=== PATIENT | female | born 1975 | race Caucasian/White ===

== ENCOUNTER 2021-01-21 15:41 | Observation (INO) ==
[2021-01-21] MEDS ORDERED: ONDANSETRON INJ 2 MG/ML 2 ML VIAL IV STA (16:13)
[2021-01-21] MEDS: HYDROmorphone INJ 0.5 MG/0.5 ML SYR IV PRN ×3 (16:25→19:14)
--- NOTE | 2021-01-21 16:25 | Emergency Department Note ---
Impression & Plan Abdominal pain, RUQ, Acute cholecystitis ED Provider Note INFORMANT: Patient ED PROVIDER(S): Rahat Calloway MD CHIEF COMPLAINT: Right upper quadrant abdominal pain PLAN: Disposition: Admitted Condition: Good Outpatient prescription management: none Referral: None MEDICAL DECISION MAKING: Patient was complaining of abdominal pain. This was right upper quadrant. Is concerning as she just had a colonoscopy performed. She was treated with IV Dilaudid and Zofran. She had blood work and imaging ordered. Her CBC, chemistry panel, LFTs, and lipase were unremarkable. Urinalysis was somewhat questionable although the patient does not have any urinary symptoms. CT imaging was performed. Radiology was concerned about possible developing cholecystitis recommend ultrasound imaging. Ultrasound imaging was performed and showed findings concerning for acute cholecystitis. Large gallstones noted. The patient required multiple doses of IV Dilaudid and was given IV Toradol as well. Consultation was made with general surgery, Dr. Collins. The patient will be admitted for further management. She was given IV Mefoxin. Triage Nursing notes reviewed and agree them. Vital Signs: reviewed and remarkable for no significant abnormalities Differential diagnosis: Biliary pathology, complication of colonoscopy, appendicitis, ovarian cyst, ovarian torsion, ectopic , TOA, PID, infections, diverticulitis, UTI, obstruction, mesenteric ischemia, aortic pathology, inflammatory bowel disease, renal colic, PUD, pancreatitis, hernia, volvulus, constipation, as well as other pathologies. Diagnostics interpreted by me: ECG: none Cardiac Monitoring: Cardiac monitoring ordered by me: The patient was placed on continuous cardiac monitoring and observed. It revealed a normal sinus rhythm at 66 beats per minute without ectopy or evidence of dysrhythmia. Imaging studies: CT imaging of the abdomen pelvis was concerning for developing cholecystitis. Radiology recommended ultrasound imaging Ultrasound imaging shows significant cholelithiasis and concerns for cholecystitis. HPI: The patient is a 45 year old female who presents to the Emergency Room with complaints of abdominal pain. This started this morning at 8 AM and is in the right upper quadrant. The patient also notes the following associated symptoms, nausea. The patient has tried Tylenol and Motrin for relieving factors. Current pain is rated as 7/10. Patient had a colonoscopy done yesterday. She notes no obvious problems from that. She woke up today with the pain. She has not notified GI. Pt denies LOC, headache, fevers, chills, diaphoresis, visual changes, neck pain, chest pain, breathing difficulties, , vomiting, back pain, melena, hematochezia, urinary symptoms, numbness, weakness, lymphadenopathy, r yeni, or other complaints. ROS: See above HPI for pertinent positives & negatives. A total of 10 systems reviewed and were otherwise negative. PAST MEDICAL HISTORY:See Below , GERD, hypothyroidism PAST SURGICAL HISTORY:See Below, FAMILY HISTORY:See Below SOCIAL HISTORY:See Below, single HOME MEDICATIONS:See Below ALLERGIES:See Below VITALS:See Below PHYSICAL EXAMINATION: GENERAL: Awake, alert, uncomfortable-appearing, in no distress HENT: Normocephalic, atraumatic. Oropharynx unremarkable. EYES: Normal conjunctiva. Sclera non-icteric. NECK: Inspection normal. Non-tender. Supple. No nuchal rigidity. FROM. No masses. RESPIRATORY: Clear to auscultation. No wheezes. No rales. Normal respiratory effort. CARDIAC: Normal rate. Normal rhythm. No murmurs. No rubs. Extremities warm and well perfused. Pulses equal. No JVD. GI: Soft, non-distended. Right upper quadrant tenderness to palpation. No rebound or guarding. No masses. RECTAL: Deferred. MUSCULOSKELETAL: Atraumatic. Chest examination reveals no tenderness. The back is symmetrical on inspection without obvious abnormality. There is no CVA tenderness to palpation. No joint edema. LOWER EXTREMITIES: Calves are equal size bilaterally and non-tender. No edema. No discoloration. NEURO: Normal sensorium. No sensory or motor deficits noted. SKIN: No rash or jaundice noted.n Rahat Calloway MD Past Med/Surg History Medical History (Updated 01/21/21 @ 20:01 by Rahat Calloway MD) ADD (attention deficit disorder) Allergy-induced asthma LAST USED INHALER 3 WEEKS AGO Anxiety and depression Bipolar disorder "MILD" Brain concussion X 5 ([facility]>LAST EPISODE 5 YEARS AGO) Degenerative disc disease EDS (Jaya-Danlos syndrome) Endometriosis (~01/17/06) GERD (gastroesophageal reflux disease) H/O benign neoplasm of thyroid gland Hypothyroidism Lumbar radiculopathy Migraine Temporomandibular joint disorder WITH LOCKING Surgical History (Updated 01/17/21 @ 15:47 by Viola Oreilly RN) H/O thyroidectomy LARGE MASS REMOVED (BENIGN) History of esophagogastroduodenoscopy (EGD) History of tooth extraction S/P laparoscopic procedure endometrioma fulguration AND OVARIAN CYSTECTOMY [place] teeth removed Family History (Updated 01/17/21 @ 15:47 by Viola Oreilly RN) Aunt Breast cancer maternal Mother Multiple allergies Hyperlipidemia Mental disorder Esophageal reflux Endometriosis Hypertension Thyroid disorder Unknown Skin cancer Ovarian cancer Breast cancer Uterine cancer Father Multiple allergies Skin cancer Grandmother (Paternal) Lung cancer Uncle Myocardial infarction Other Family history of blood clots No family history of adverse response to anesthesia Denies family history of Prostate cancer Diabetes Colorectal cancer Social History Smoking Status: Never smoker Second Hand Exposure: Yes ( A CHILD); Hx Alcohol Use: Yes Hx Substance Use: No Preferred Language: Guinean Communication Ability: Effective Photographic Spotter Required: No Beliefs That Will Affect Care: None marital status: Single Current Living Situation: Significant Other current occupational status: unemployed How many Children do You have: 0 Feels Safe at Home: Yes Safety Concerns: Feels Safe At This Time Childhood Exposure to Second-Hand Smoke: Yes caffeine: Yes Dental Care, Regularly: No Physical Activity Frequency: 3-4 Times per Week Seatbelt Use: always Sunscreen Use: Yes Assistive Devices: Glasses Allergies Allergies Allergy/AdvReac Type Severity Reaction Status Date / Time No Known Allergies Allergy Unknown Verified 01/21/21 20:39 Home Meds Home Medications Medication Instructions Recorded Confirmed cetirizine 5 mg-pseudoephedrine ER 1 tab PO DAILY PRN tab 11/15/20 01/21/21 120 mg tablet,extended release,12hr (Zyrtec-D) cholecalciferol (vitamin D3) 50 50 mcg PO HS 11/15/20 01/21/21 mcg (2,000 unit) capsule Curamin 3 cap PO QAM 01/17/21 01/21/21 omega-3 fatty acids 1,000 mg PO QPM 01/17/21 01/21/21 acetaminophen 500 mg tablet 1,500 mg PO Q6H PRN 01/21/21 01/21/21 (Tylenol Extra Strength) conjugated estrogens 0.625 mg/gram 0.625 mg VAGINAL PM 01/21/21 01/21/21 vaginal cream (Premarin) ibuprofen 200 mg capsule (Motrin 200 mg PO Q6H PRN 01/21/21 01/21/21 IB) levothyroxine 100 mcg tablet 100 mcg PO DAILYBB 01/21/21 01/21/21 omeprazole 40 mg capsule,delayed 40 mg PO QAM 01/21/21 01/21/21 release Previous Rx's Medication Instructions Recorded albuterol sulfate 90 mcg/actuation 1 inh INHALATION QID PRN #8.5 g 11/11/20 aerosol inhaler calcipotriene 0.005 % topical cream 1 applic TOPICAL BID #120 g 12/13/20 clobetasol 0.05 % scalp solution 1 applic TOPICAL DAILY #50 ml 12/13/20 clobetasol 0.05 % topical cream 1 applic TOPICAL BID 14 Days #60 g 12/13/20 Results & Data (ED) Vital Signs Vital Signs - 24 hr 01/21/21 15:46 01/21/21 16:30 01/21/21 17:00 Temperature 36.9 C Temperature Source Temporal Artery Scan Pulse Rate 66 Pulse Rate [Apical] 56 L Pulse Rate from SpO2 Sensor Respiratory Rate 18 18 Respiratory Effort / Characteristics Non-Labored Spontaneous Non-Labored Respiratory Depth Normal Normal Respiratory Pattern Regular Blood Pressure 167/86 H Blood Pressure [Right Arm] 107/92 Blood Pressure Mean 113 Blood Pressure Mean [Right Arm] 97 Blood Pressure Position Sitting Pulse Oximetry 100 97 Oxygen Delivery Method Room Air Room Air Room Air Sepsis Recent Fever Within 48 Hours No Sepsis New/Unexplained Change in Mental Status N/A Sepsis Action Taken by Nursing No Action Required 01/21/21 18:00 01/21/21 19:00 01/21/21 20:00 Temperature Temperature Source Pulse Rate 60 76 Pulse Rate [Apical] 60 Pulse Rate from SpO2 Sensor 61 78 Respiratory Rate 18 20 16 Respiratory Effort / Characteristics Non-Labored Respiratory Depth Normal Respiratory Pattern Blood Pressure 156/113 H 123/77 Blood Pressure [Right Arm] 156/92 H Blood Pressure Mean 127 92 Blood Pressure Mean [Right Arm] 113 Blood Pressure Position Pulse Oximetry 100 100 96 Oxygen Delivery Method Room Air Sepsis Recent Fever Within 48 Hours Sepsis New/Unexplained Change in Mental Status Sepsis Action Taken by Nursing Laboratory Data Result diagrams: 01/21/21 16:21 01/21/21 16:21 Lab Results 01/21/21 01/21/21 01/21/21 Range/Units 16:21 16:21 16:21 WBC 9.79 (4.8-10.8) K/uL RBC 4.86 (4.2-5.4) M/uL Hgb 14.7 (12.0-16.0) g/dL Hct 42.2 (37-47) % MCV 86.8 (80-100) fL MCH 30.2 (25-34) pg MCHC 34.8 (32-36) g/dL RDW Std Deviation 40.7 (36.4-46.3) fL RDW Coeff of Shaan 12.7 (11.5-14.5) % Plt Count 376 (130-400) K/uL MPV 9.9 (7.4-10.4) fL Immature Gran % (Auto) 0.1 % Neut % (Auto) 87.1 % Lymph % (Auto) 9.9 % [place] % (Auto) 2.6 % Eos % (Auto) 0.2 % Baso % (Auto) 0.1 % Neut # (Auto) 8.53 H (1.4-6.5) K/uL Lymph # (Auto) 0.97 L (1.2-3.4) K/uL [place] # (Auto) 0.25 (0.11-0.59) K/uL Eos # (Auto) 0.02 (0-0.5) K/uL Baso # (Auto) 0.01 (0-0.2) K/uL Immature Gran # (Auto) 0.01 (0.00-0.02) K/uL Sodium 136 (136-145) mmol/L Potassium 3.7 (3.5-5.1) mmol/L Chloride 106 (98-107) mmol/L Carbon Dioxide 22 (21-32) mmol/L Anion Gap 8.0 (3-11) BUN 7 (7-18) mg/dl Creatinine 0.75 (0.6-1.2) mg/dl Est Cr Clr Drug Dosing 116.7 ml/min Est GFR ( Amer) 111.6 ml/min Est GFR (Non-Af Amer) 96.3 ml/min BUN/Creatinine Ratio 9.3 L (10-20) Glucose 118 H (70-99) mg/dl Calcium 9.2 (8.5-10.1) mg/dl Total Bilirubin 0.3 (0.2-1) mg/dl AST 18 (15-37) U/L ALT 43 (12-78) U/L Alkaline Phosphatase 86 (45-117) U/L Total Protein 7.8 (6.4-8.2) gm/dl Albumin 3.9 (3.4-5.0) gm/dl Globulin 3.9 (2.5-4.0) gm/dl Albumin/Globulin Ratio 1.0 (0.9-2) Lipase 106 (73-393) U/L HCG, Qual Negative (Negative) Urine Color Urine Appearance (Clear) Urine pH (4.5-7.5) Ur Specific [place] (1.000-1.030) Urine Protein (Negative) Urine Glucose (UA) (Negative) Urine Ketones (Negative) Urine Blood (Negative) Urine Nitrite (Negative) Urine Bilirubin (Negative) Urine Urobilinogen (Negative) Ur Leukocyte Esterase (Negative) Urine WBC (Auto) (0-5) /hpf Urine RBC (Auto) (0-4) /hpf U Hyaline Cast (Auto) (0-5) /lpf U Epithel Cells (Auto) (0-5) /lpf Urine Bacteria (Auto) (Negative) Amorphous Sediment (None Prsent) Urine Yeast COVID-19 Eval Order SARS-CoV-2 (PCR) (Negative) 01/21/21 01/21/21 01/21/21 Range/Units 16:25 20:20 20:20 WBC (4.8-10.8) K/uL RBC (4.2-5.4) M/uL Hgb (12.0-16.0) g/dL Hct (37-47) % MCV (80-100) fL MCH (25-34) pg MCHC (32-36) g/dL RDW Std Deviation (36.4-46.3) fL RDW Coeff of Shaan (11.5-14.5) % Plt Count (130-400) K/uL MPV (7.4-10.4) fL Immature Gran % (Auto) % Neut % (Auto) % Lymph % (Auto) % [place] % (Auto) % Eos % (Auto) % Baso % (Auto) % Neut # (Auto) (1.4-6.5) K/uL Lymph # (Auto) (1.2-3.4) K/uL [place] # (Auto) (0.11-0.59) K/uL Eos # (Auto) (0-0.5) K/uL Baso # (Auto) (0-0.2) K/uL Immature Gran # (Auto) (0.00-0.02) K/uL Sodium (136-145) mmol/L Potassium (3.5-5.1) mmol/L Chloride (98-107) mmol/L Carbon Dioxide (21-32) mmol/L Anion Gap (3-11) BUN (7-18) mg/dl Creatinine (0.6-1.2) mg/dl Est Cr Clr Drug Dosing ml/min Est GFR ( Amer) ml/min Est GFR (Non-Af Amer) ml/min BUN/Creatinine Ratio (10-20) Glucose (70-99) mg/dl Calcium (8.5-10.1) mg/dl Total Bilirubin (0.2-1) mg/dl AST (15-37) U/L ALT (12-78) U/L Alkaline Phosphatase (45-117) U/L Total Protein (6.4-8.2) gm/dl Albumin (3.4-5.0) gm/dl Globulin (2.5-4.0) gm/dl Albumin/Globulin Ratio (0.9-2) Lipase (73-393) U/L HCG, Qual (Negative) Urine Color Yellow Urine Appearance Cloudy A (Clear) Urine pH 5.0 (4.5-7.5) Ur Specific [place] 1.022 (1.000-1.030) Urine Protein Negative (Negative) Urine Glucose (UA) Negative (Negative) Urine Ketones Negative (Negative) Urine Blood Negative (Negative) Urine Nitrite Negative (Negative) Urine Bilirubin Negative (Negative) Urine Urobilinogen Negative (Negative) Ur Leukocyte Esterase Negative (Negative) Urine WBC (Auto) 10-30 H (0-5) /hpf Urine RBC (Auto) 0-4 (0-4) /hpf U Hyaline Cast (Auto) 1-5 (0-5) /lpf U Epithel Cells (Auto) >30 H (0-5) /lpf Urine Bacteria (Auto) 1+ H (Negative) Amorphous Sediment Present A (None Prsent) Urine Yeast Not Reportable COVID-19 Eval Order Covid19 at [facility] SARS-CoV-2 (PCR) NEGATIVE (Negative) Administered Medications Lactated Ringer's (Lr) 1,000 mls @ 100 mls/hr IV .Q10H LOVE Stop: 02/20/21 23:02 Last Admin: 01/21/21 23:50 Dose: 100 mls/hr Documented by: [id number] Ampicillin Sodium/Sulbactam Sodium 1,500 mg/ Sodium Chloride 104 mls @ 200 mls/hr IV Q6H LOVE; Protocol Stop: 02/01/21 00:00 Last Admin: 01/22/21 00:51 Dose: 200 mls/hr Documented by: [id number] Morphine Sulfate (Morphine Sulfate 2 Mg/Ml Carp) 2 mg IV Q3H PRN PRN Reason: Pain (1,2,3,4,5) & Pre PT Stop: 02/04/21 23:02 Last Admin: 01/21/21 23:45 Dose: 2 mg Documented by: [id number] Morphine Sulfate (Morphine Sulfate 4 Mg/Ml 1 Ml Carp\\Vial) 4 mg IV Q3H PRN PRN Reason: Pain (6,7,8,9,10) Stop: 02/04/21 23:02 Last Admin: 01/22/21 00:50 Dose: 4 mg Documented by: [id number] Discontinued Medications Hydromorphone HCl (Hydromorphone Inj 0.5 Mg/0.5 Ml Syr) 0.5 mg IV Q15M PRN PRN Reason: Pain Stop: 02/04/21 16:12 Last Admin: 01/21/21 19:14 Dose: 0.5 mg Documented by: [id number] Admin: 01/21/21 17:16 Dose: 0.5 mg Documented by: [id number] Admin: 01/21/21 16:25 Dose: 0.5 mg Documented by: [id number] Cefoxitin Sodium (Mefoxin) 2,000 mg in 60 mls @ 100 mls/hr IV NOW STA Stop: 01/21/21 20:42 Last Infusion: 01/21/21 21:07 Dose: 0 mls/hr Documented by: [id number] Admin: 01/21/21 20:21 Dose: 100 mls/hr Documented by: [id number] Ioversol (Optiray 320 125ml) 95 ml IV ONCE ONE Stop: 01/21/21 17:42 Last Admin: 01/21/21 17:41 Dose: 95 ml Documented by: [id number] Ioversol (Optiray 320 100ml) 95 ml IV ONCE ONE Stop: 01/21/21 17:43 Last Admin: 01/21/21 17:42 Dose: 95 ml Documented by: [id number] Ketorolac Tromethamine (Ketorolac Tromethamine 15 Mg/Ml Vial) 10 mg IV NOW ONE Stop: 01/21/21 18:37 Last Admin: 01/21/21 18:50 Dose: 10 mg Documented by: [id number] Ondansetron HCl (Ondansetron Inj 2 Mg/Ml 2 Ml Vial) 4 mg IV NOW STA Stop: 01/21/21 16:14 Last Admin: 01/21/21 16:25 Dose: 4 mg Documented by: [id number] Imaging Data Radiologist's Impression: Abdomen/Pelvis CT 01/21/21 16:14 CT OF THE ABDOMEN AND PELVIS WITH CONTRAST CLINICAL HISTORY: upper abd pain s/p colonoscopy COMPARISON STUDY: Pelvic ultrasound December 08, 2020. CT of the abdomen and pelvis August 26, 2016. TECHNIQUE: Following IV administration of 95 mL of Optiray, axial images of the abdomen and pelvis were obtained from the lung bases to the proximal femurs. Images were reviewed in the axial, sagittal, and coronal planes. IV contrast was administered without complication. Automated exposure control was utilized for the study. A dose lowering technique was utilized adhering to the principles of ALARA. CT DOSE: 997.19 mGy.cm FINDINGS: Visualized portions of the lung bases are unremarkable. No pneumatosis, free air or portal venous gas is present. The liver, spleen, adrenal glands, kidneys and pancreas are normal. There is no biliary or pancreatic ductal dilatation. There is mild dilatation of the gallbladder. Lucencies within the gallbladder likely reflect gas containing stones. There is trace pericholecystic fluid. There is no evidence for a bowel obstruction. The appendix is normal. Caliber and wall thickness of small and large bowel are normal. Major vasculature is patent. No acute fracture or suspicious lesion is identified within the visualized skeletal structures. IMPRESSION: 1. No pneumoperitoneum. No bowel wall thickening. 2. Mildly distended gallbladder with suspected gallstones. Trace pericholecystic infiltration. Acute cholecystitis cannot be excluded. A right upper quadrant ultrasound is recommended. ACT 112: Negative or not required by law. Electronically signed by: Ariel Mills M.D. 01/21/2021 6:32 PM Gallbladder Ultrasound 01/21/21 18:36 US gallbladder CLINICAL HISTORY: Right upper quadrant abdominal pain. COMPARISON STUDY: CT of the abdomen and pelvis performed earlier today. FINDINGS: No hepatic lesions are identified. There is no biliary ductal dilatation. The common bile duct measures 3 mm in caliber. Pancreas is unremarkable. Note is made of a 2.3 cm gallstone within the gallbladder. There is sludge within the gallbladder. Gallbladder is mildly distended. There is no gallbladder wall thickening. There is trace pericholecystic fluid. Sonographic Sow sign could not be assessed for in this patient. There is no right hydronephrosis. IMPRESSION: 1. Cholelithiasis and sludge within the gallbladder. Trace pericholecystic fluid. Mild gallbladder distention. Acute cholecystitis cannot be excluded. 2. No biliary ductal dilatation. ACT 112: Negative or not required by law. Electronically signed by: Ariel Mills M.D. 01/21/2021 8:03 PM Discharge Plan Visit Data Chief Complaint: Abdominal Pain Stated Complaint: HAD COLONSCOPY YESTERDAY, PAIN & NAUSEA ED Provider: Rahat Calloway Discharge Problem: Abdominal pain, RUQ, Acute cholecystitis Patient Disposition: Admitted As Inpatient Discharge Instructions Interventions: ED Discharge Assessment Last Done: 01/21/21 22:35
[2021-01-21 16:31] LABS: Basophils # (auto) 0.01 K/uL (0-0.2); Basophils % (auto) 0.1 %; Eosinophils # (auto) 0.02 K/uL (0-0.5); Eosinophils % (auto) 0.2 %; Hematocrit (blood only) 42.2 % (37-47); Hemoglobin 14.7 g/dL (12.0-16.0); Immature Granulocytes # (auto) 0.01 K/uL (0.00-0.02); Immature Granulocytes % (auto) 0.1 %; Lymphocytes # (auto) 0.97 K/uL (1.2-3.4); Lymphocytes % (auto) 9.9 %; Mean Corpuscular Hemoglobin 30.2 pg (25-34); Mean Corpuscular Hgb Conc 34.8 g/dL (32-36); Mean Corpuscular Volume 86.8 fL (80-100); Mean Platelet Volume 9.9 fL (7.4-10.4); Monocytes # (auto) 0.25 K/uL (0.11-0.59); Monocytes % (auto) 2.6 %; Neutrophils # (auto) 8.53 K/uL (1.4-6.5); Neutrophils % (auto) 87.1 %; Platelet Count 376 K/uL (130-400); RDW Coefficient of Variation 12.7 % (11.5-14.5); RDW Standard Deviation 40.7 fL (36.4-46.3); Red Blood Count 4.86 M/uL (4.2-5.4); White Blood Count 9.79 K/uL (4.8-10.8)
[2021-01-21 16:47] LABS: Albumin Level 3.9 gm/dl (3.4-5.0); BUN Creatinine Ratio 9.3 (10-20); Calcium 9.2 mg/dl (8.5-10.1); Creatinine Clr Calc Pharmacy 116.7 ml/min; Est GFR (African American) 111.6 ml/min; Est GFR (Non-African American) 96.3 ml/min; Potassium 3.7 mmol/L (3.5-5.1)
[2021-01-21 16:50] LABS: Bilirubin,Total 0.3 mg/dl (0.2-1); Globulin 3.9 gm/dl (2.5-4.0); Total Protein 7.8 gm/dl (6.4-8.2)
[2021-01-21 17:05] LABS: Pregnancy Test, Serum Negative (Negative)
[2021-01-21 17:24] LABS: Appearance Urine Cloudy (Clear); Bacteria Urine Automated 1+ (Negative); Bilirubin Urine Negative (Negative); Blood Urine Negative (Negative); Color Urine Yellow; Epithelial Cell Urine Auto >30 /lpf (0-5); Glucose Urine UA Negative (Negative); Ketones Urine Negative (Negative); Leukocyte Esterase Urine Negative (Negative); Nitrite Urine Negative (Negative); Protein Urine Negative (Negative); Specific Gravity Urine 1.022 (1.000-1.030); Urobilinogen Urine Negative (Negative)
[2021-01-21 17:40] LABS: Amorphous Sediment Urine Present (None Prsent); RBC Urine Automated 0-4 /hpf (0-4)
[2021-01-21] MEDS ORDERED: OPTIRAY 320 125ml IV ONE (17:41)
[2021-01-21] MEDS ORDERED: OPTIRAY 320 100ml IV ONE (17:42)
--- NOTE | 2021-01-21 18:33 | CT Scan Report ---
CT OF THE ABDOMEN AND PELVIS WITH CONTRAST CLINICAL HISTORY: upper abd pain s/p colonoscopy COMPARISON STUDY: Pelvic ultrasound December 08, 2020. CT of the abdomen and pelvis August 26, 2016. TECHNIQUE: Following IV administration of 95 mL of Optiray, axial images of the abdomen and pelvis we re obtained from the lung bases to the proximal femurs. Images were reviewed in the axial, sagittal, and coronal planes. IV contrast was administered without complication. Automated exposure control wa s utilized for the study. A dose lowering technique was utilized adhering to the principles of ALARA . CT DOSE: 997.19 mGy.cm FINDINGS: Visualized portions of the lung bases are unremarkable. No pneumatosis, free air or portal venous gas is present. The liver, spleen, adrenal glands, kidneys and pancreas are normal. There is n o biliary or pancreatic ductal dilatation. There is mild dilatation of the gallbladder. Lucencies wit hin the gallbladder likely reflect gas containing stones. There is trace pericholecystic fluid. There is no evidence for a bowel obstruction. The appendix is normal. Caliber and wall thickness of small and large bowel are normal. Major vasculature is patent. No acute fracture or suspicious lesion is id entified within the visualized skeletal structures. IMPRESSION: 1. No pneumoperitoneum. No bowel wall thickening. 2. Mildly distended gallbladder with suspected gallstones. Trace pericholecystic infiltration. Acute cholecystitis cannot be excluded. A right upper quadrant ultrasound is recommended. ACT 112: Negative or not required by law. Electronically signed by: Ariel Mills M.D. 01/21/2021 6:32 PM
[2021-01-21] MEDS ORDERED: KETOROLAC TROMETHAMINE 15 MG/ML VIAL IV ONE (18:36)
--- NOTE | 2021-01-21 20:04 | Ultrasound Report ---
US gallbladder CLINICAL HISTORY: Right upper quadrant abdominal pain. COMPARISON STUDY: CT of the abdomen and pelvis performed earlier today. FINDINGS: No hepatic lesions are identified. There is no biliary ductal dilatation. The common bile d uct measures 3 mm in caliber. Pancreas is unremarkable. Note is made of a 2.3 cm gallstone within the gallbladder. There is sludge within the gallbladder. Gallbladder is mildly distended. There is no ga llbladder wall thickening. There is trace pericholecystic fluid. Sonographic Sow sign could not be assessed for in this patient. There is no right hydronephrosis. IMPRESSION: 1. Cholelithiasis and sludge within the gallbladder. Trace pericholecystic fluid. Mild gallbladder di stention. Acute cholecystitis cannot be excluded. 2. No biliary ductal dilatation. ACT 112: Negative or not required by law. Electronically signed by: Ariel Mills M.D. 01/21/2021 8:03 PM
[2021-01-21] MEDS ORDERED: cefOXitin 2,000 MG/60 ML BAG IV STA (20:07)
[2021-01-21] MEDS ORDERED: ALBUTEROL HFA 8 GM INHALER INH PRN (23:03)
[2021-01-21] MEDS ORDERED: oxyCODONE/ACETAMINOPHEN 5mg/325mg TAB PO PRN (23:03)
[2021-01-21] MEDS ORDERED: ONDANSETRON INJ 2 MG/ML 2 ML VIAL IV PRN (23:03)
[2021-01-21] MEDS: MoRPHine SULFATE 2 MG/ML CARP IV PRN (23:45)
[2021-01-21] MEDS: LACTATED RINGER'S 1,000 ML IV SCH (23:50)
[2021-01-22] MEDS: MoRPHine SULFATE 4 MG/ML 1 ML CARP\\VIAL IV PRN ×3 (00:50→17:21)
[2021-01-22] MEDS: AMPICILLIN/SULBACTAM SOD 1,500 MG in 0.9 % SODIUM CHLORIDE 100 ML IV SCH ×4 (00:51→18:29)
[2021-01-22] MEDS: LEVOTHYROXINE SODIUM 100 MCG TABLET PO SCH (06:00)
[2021-01-22] MEDS: MoRPHine SULFATE 2 MG/ML CARP IV PRN (06:00)
[2021-01-22] MEDS: PANTOprazole 40 MG TAB PO SCH (07:51)
[2021-01-22] MEDS ORDERED: BUPIVACAINE 0.5 % 5 MG/1 ML MPF 30ML VIAL ONE (08:15)
--- NOTE | 2021-01-22 08:17 | History & Physical Report ---
Date of Service January 22, 2021 Assessment & Plan (1) Acute cholecystitis: Plan: Discussed laparoscopic cholecystectomy with risks of bleeding, infection, conversion to open, worsening of her diarrhea, intolerance to foods, need for ercp if bile leak or retained stone. Expected recovery time of 1-2 weeks discussed. Consent signed. For OR today. Present on Admission?: Yes (2) Abdominal pain, RUQ: Plan: due to acute calculous cholecystitis Admission and Anticipated Discharge Date Admission Date: January 21, 2021 History of Present Illness Chief Complaint: abdominal pain Primary Care Provider: Good Negron, 45 yr old woman who underwent a colonoscopy yesterday for diarrhea. Afterwards, she ate onion rings, nachos, mashed potatoes and then developed severe upper abdominal pain. Located in epigastrium, right upper quadrant, squeezing, sharp, crampy, 8/10 in intensity, mild nausea but no vomiting. Radiated to her back. Somewhat better with pain meds but still feels "crappy". Can't get comfortable, no exacerbating factors. No family history of gallbladder disease. No fevers/ chills. Came to ER and was found to have acute calculous cholecystitis. No jaundice. Allergies Allergy/AdvReac Type Severity Reaction Status Date / Time No Known Allergies Allergy Unknown Verified 01/21/21 20:39 Home Medications Medication Instructions Recorded Confirmed Type albuterol sulfate 90 mcg/actuation 1 inh INHALATION QID PRN #8.5 g 11/11/20 01/21/21 Rx aerosol inhaler cetirizine 5 mg-pseudoephedrine ER 1 tab PO DAILY PRN tab 11/15/20 01/21/21 History 120 mg tablet,extended release,12hr (Zyrtec-D) cholecalciferol (vitamin D3) 50 50 mcg PO HS 11/15/20 01/21/21 History mcg (2,000 unit) capsule calcipotriene 0.005 % topical cream 1 applic TOPICAL BID #120 g 12/13/20 Rx clobetasol 0.05 % scalp solution 1 applic TOPICAL DAILY #50 ml 12/13/20 01/21/21 Rx clobetasol 0.05 % topical cream 1 applic TOPICAL BID 14 Days #60 g 12/13/20 01/21/21 Rx Curamin 3 cap PO QAM 01/17/21 01/21/21 History omega-3 fatty acids 1,000 mg PO QPM 01/17/21 01/21/21 History acetaminophen 500 mg tablet 1,500 mg PO Q6H PRN 01/21/21 01/21/21 History (Tylenol Extra Strength) conjugated estrogens 0.625 mg/gram 0.625 mg VAGINAL PM 01/21/21 01/21/21 History vaginal cream (Premarin) ibuprofen 200 mg capsule (Motrin 200 mg PO Q6H PRN 01/21/21 01/21/21 History IB) levothyroxine 100 mcg tablet 100 mcg PO DAILYBB 01/21/21 01/21/21 History omeprazole 40 mg capsule,delayed 40 mg PO QAM 01/21/21 01/21/21 History release Past Med/Surg History Medical History ADD (attention deficit disorder) Allergy-induced asthma LAST USED INHALER 3 WEEKS AGO Anxiety and depression Bipolar disorder "MILD" Brain concussion X 5 ([facility]>LAST EPISODE 5 YEARS AGO) Degenerative disc disease EDS (Jaya-Danlos syndrome) Endometriosis (~01/17/06) GERD (gastroesophageal reflux disease) H/O benign neoplasm of thyroid gland Hypothyroidism Lumbar radiculopathy Migraine Temporomandibular joint disorder WITH LOCKING Surgical History H/O thyroidectomy LARGE MASS REMOVED (BENIGN) History of esophagogastroduodenoscopy (EGD) History of tooth extraction S/P laparoscopic procedure endometrioma fulguration AND OVARIAN CYSTECTOMY [place] teeth removed Family History Aunt Breast cancer maternal Mother Multiple allergies Hyperlipidemia Mental disorder Esophageal reflux Endometriosis Hypertension Thyroid disorder Unknown Skin cancer Ovarian cancer Breast cancer Uterine cancer Father Multiple allergies Skin cancer Grandmother (Paternal) Lung cancer Uncle Myocardial infarction Other Family history of blood clots No family history of adverse response to anesthesia Denies family history of Prostate cancer Diabetes Colorectal cancer Social History Smoking Status: Never smoker Second Hand Exposure: Yes ( A CHILD); Hx Alcohol Use: Yes Hx Substance Use: No Preferred Language: Hungarian Communication Ability: Effective Stone Gang Sawyer Required: No Beliefs That Will Affect Care: None marital status: Single Current Living Situation: Significant Other current occupational status: unemployed How many Children do You have: 0 Feels Safe at Home: Yes Safety Concerns: Feels Safe At This Time Childhood Exposure to Second-Hand Smoke: Yes caffeine: Yes Dental Care, Regularly: No Physical Activity Frequency: 3-4 Times per Week Seatbelt Use: always Sunscreen Use: Yes Assistive Devices: Glasses Review of Systems Review of Systems: All systems reviewed & are unremarkable except as noted in HPI & below Gastrointestinal: + bloating (if eats shake and bake) and + diarrhea/loose stools (for last 8 months or so) Physical Exam Constitutional: WD/WN, vitals as above Eyes: PERRL, conjunctivae normal, anicteric sclerae ENMT: external ear and nose normal, oropharynx normal Neck: normal visual inspection and trachea midline Respiratory: normal respiratory effort, lungs clear to auscultation Cardiovascular: RRR, no murmur, no edema Gastrointestinal (Abdomen): Inspection/Auscultation: abdomen normal to inspection, normal bowel sounds and + abdominal surgical scar (laparoscopy); abdomen not distended Percussion/Palpation: + abdomen tender (epigastric, right upper quadrant) and abdomen soft; no guarding Musculoskeletal: Head/Neck/Chest: normocephalic and head atraumatic Extremities: extremities normal to inspection Skin: psoriasis patches on abdomen Neurologic: CN's II-XI intact bilaterally and awake; no focal motor deficits Psychiatric: A+Ox3, euthymic affect Results & Data Results & Data ([facility]) Vital Signs (Past 12 Hours) Vital Signs Temp Pulse Pulse Resp BP BP Pulse Ox 01/22/21 07:41 37 C 69 16 147/87 H 96 01/21/21 23:25 37.0 C 67 16 124/72 100 01/21/21 22:30 68 15 154/79 H 99 01/21/21 22:00 67 18 146/94 H 99 01/21/21 21:31 56 L 18 140/80 99 01/21/21 21:02 69 18 148/95 H 96 01/21/21 20:31 57 L 16 144/84 H 100 Laboratory Results 01/21/21 01/21/21 01/21/21 Range/Units 20:20 20:20 16:25 WBC (4.8-10.8) K/uL RBC (4.2-5.4) M/uL Hgb (12.0-16.0) g/dL Hct (37-47) % MCV (80-100) fL MCH (25-34) pg MCHC (32-36) g/dL RDW Std Deviation (36.4-46.3) fL RDW Coeff of Shaan (11.5-14.5) % Plt Count (130-400) K/uL MPV (7.4-10.4) fL Immature Gran % (Auto) % Neut % (Auto) % Lymph % (Auto) % [place] % (Auto) % Eos % (Auto) % Baso % (Auto) % Neut # (Auto) (1.4-6.5) K/uL Lymph # (Auto) (1.2-3.4) K/uL [place] # (Auto) (0.11-0.59) K/uL Eos # (Auto) (0-0.5) K/uL Baso # (Auto) (0-0.2) K/uL Immature Gran # (Auto) (0.00-0.02) K/uL Sodium (136-145) mmol/L Potassium (3.5-5.1) mmol/L Chloride (98-107) mmol/L Carbon Dioxide (21-32) mmol/L Anion Gap (3-11) BUN (7-18) mg/dl Creatinine (0.6-1.2) mg/dl Est Cr Clr Drug Dosing ml/min Est GFR ( Amer) ml/min Est GFR (Non-Af Amer) ml/min BUN/Creatinine Ratio (10-20) Glucose (70-99) mg/dl Calcium (8.5-10.1) mg/dl Total Bilirubin (0.2-1) mg/dl AST (15-37) U/L ALT (12-78) U/L Alkaline Phosphatase (45-117) U/L Total Protein (6.4-8.2) gm/dl Albumin (3.4-5.0) gm/dl Globulin (2.5-4.0) gm/dl Albumin/Globulin Ratio (0.9-2) Lipase (73-393) U/L HCG, Qual (Negative) Urine Color Yellow Urine Appearance Cloudy A (Clear) Urine pH 5.0 (4.5-7.5) Ur Specific [place] 1.022 (1.000-1.030) Urine Protein Negative (Negative) Urine Glucose (UA) Negative (Negative) Urine Ketones Negative (Negative) Urine Blood Negative (Negative) Urine Nitrite Negative (Negative) Urine Bilirubin Negative (Negative) Urine Urobilinogen Negative (Negative) Ur Leukocyte Esterase Negative (Negative) Urine WBC (Auto) 10-30 H (0-5) /hpf Urine RBC (Auto) 0-4 (0-4) /hpf U Hyaline Cast (Auto) 1-5 (0-5) /lpf U Epithel Cells (Auto) >30 H (0-5) /lpf Urine Bacteria (Auto) 1+ H (Negative) Amorphous Sediment Present A (None Prsent) Urine Yeast Not Reportable COVID-19 Eval Order Covid19 at [facility] SARS-CoV-2 (PCR) NEGATIVE (Negative) 01/21/21 01/21/21 01/21/21 Range/Units 16:21 16:21 16:21 WBC 9.79 (4.8-10.8) K/uL RBC 4.86 (4.2-5.4) M/uL Hgb 14.7 (12.0-16.0) g/dL Hct 42.2 (37-47) % MCV 86.8 (80-100) fL MCH 30.2 (25-34) pg MCHC 34.8 (32-36) g/dL RDW Std Deviation 40.7 (36.4-46.3) fL RDW Coeff of Sh[place] 12.7 (11.5-14.5) % Plt Count 376 (130-400) K/uL MPV 9.9 (7.4-10.4) fL Immature Gran % (Auto) 0.1 % Neut % (Auto) 87.1 % Lymph % (Auto) 9.9 % [place] % (Auto) 2.6 % Eos % (Auto) 0.2 % Baso % (Auto) 0.1 % Neut # (Auto) 8.53 H (1.4-6.5) K/uL Lymph # (Auto) 0.97 L (1.2-3.4) K/uL [place] # (Auto) 0.25 (0.11-0.59) K/uL Eos # (Auto) 0.02 (0-0.5) K/uL Baso # (Auto) 0.01 (0-0.2) K/uL Immature Gran # (Auto) 0.01 (0.00-0.02) K/uL Sodium 136 (136-145) mmol/L Potassium 3.7 (3.5-5.1) mmol/L Chloride 106 (98-107) mmol/L Carbon Dioxide 22 (21-32) mmol/L Anion Gap 8.0 (3-11) BUN 7 (7-18) mg/dl Creatinine 0.75 (0.6-1.2) mg/dl Est Cr Clr Drug Dosing 116.7 ml/min Est GFR ( Amer) 111.6 ml/min Est GFR (Non-Af Amer) 96.3 ml/min BUN/Creatinine Ratio 9.3 L (10-20) Glucose 118 H (70-99) mg/dl Calcium 9.2 (8.5-10.1) mg/dl Total Bilirubin 0.3 (0.2-1) mg/dl AST 18 (15-37) U/L ALT 43 (12-78) U/L Alkaline Phosphatase 86 (45-117) U/L Total Protein 7.8 (6.4-8.2) gm/dl Albumin 3.9 (3.4-5.0) gm/dl Globulin 3.9 (2.5-4.0) gm/dl Albumin/Globulin Ratio 1.0 (0.9-2) Lipase 106 (73-393) U/L HCG, Qual Negative (Negative) Urine Color Urine Appearance (Clear) Urine pH (4.5-7.5) Ur Specific [place] (1.000-1.030) Urine Protein (Negative) Urine Glucose (UA) (Negative) Urine Ketones (Negative) Urine Blood (Negative) Urine Nitrite (Negative) Urine Bilirubin (Negative) Urine Urobilinogen (Negative) Ur Leukocyte Esterase (Negative) Urine WBC (Auto) (0-5) /hpf Urine RBC (Auto) (0-4) /hpf U Hyaline Cast (Auto) (0-5) /lpf U Epithel Cells (Auto) (0-5) /lpf Urine Bacteria (Auto) (Negative) Amorphous Sediment (None Prsent) Urine Yeast COVID-19 Eval Order SARS-CoV-2 (PCR) (Negative) Diagnostic Findings US gallbladder CLINICAL HISTORY: Right upper quadrant abdominal pain. COMPARISON STUDY: CT of the abdomen and pelvis performed earlier today. FINDINGS: No hepatic lesions are identified. There is no biliary ductal dilatation. The common bile duct measures 3 mm in caliber. Pancreas is unremarkable. Note is made of a 2.3 cm gallstone within the gallbladder. There is sludge within the gallbladder. Gallbladder is mildly distended. There is no gallbladder wall thickening. There is trace pericholecystic fluid. Sonographic Sow sign could not be assessed for in this patient. There is no right hydronephrosis. IMPRESSION: 1. Cholelithiasis and sludge within the gallbladder. Trace pericholecystic fluid. Mild gallbladder distention. Acute cholecystitis cannot be excluded. 2. No biliary ductal dilatation. CT OF THE ABDOMEN AND PELVIS WITH CONTRAST CLINICAL HISTORY: upper abd pain s/p colonoscopy COMPARISON STUDY: Pelvic ultrasound December 08, 2020. CT of the abdomen and pelvis August 26, 2016. TECHNIQUE: Following IV administration of 95 mL of Optiray, axial images of the abdomen and pelvis were obtained from the lung bases to the proximal femurs. Images were reviewed in the axial, sagittal, and coronal planes. IV contrast was administered without complication. Automated exposure control was utilized for the study. A dose lowering technique was utilized adhering to the principles of ALARA. CT DOSE: 997.19 mGy.cm FINDINGS: Visualized portions of the lung bases are unremarkable. No pneumatosis, free air or portal venous gas is present. The liver, spleen, adrenal glands, kidneys and pancreas are normal. There is no biliary or pancreatic ductal dilatation. There is mild dilatation of the gallbladder. Lucencies within the gallbladder likely reflect gas containing stones. There is trace pericholecystic fluid. There is no evidence for a bowel obstruction. The appendix is normal. Caliber and wall thickness of small and large bowel are normal. Major vasculature is patent. No acute fracture or suspicious lesion is identified within the visualized skeletal structures. IMPRESSION: 1. No pneumoperitoneum. No bowel wall thickening. 2. Mildly distended gallbladder with suspected gallstones. Trace pericholecystic infiltration. Acute cholecystitis cannot be excluded. A right upper quadrant ultrasound is recommended. Code Status & VTE Plan VTE Prophylaxis Plan VTE Prophylaxis will be ordered: Yes
[2021-01-22] MEDS ORDERED: PROPOFOL IV EMULSION 10 MG/ML 20 ML VIAL IV ONE (09:47)
[2021-01-22] MEDS ORDERED: ROCURONIUM BROMIDE 10 MG/ML 5 ML VIAL IV ONE (09:47)
[2021-01-22] MEDS: LACTATED RINGER'S 1,000 ML IV SCH ×2 (09:57→20:23)
[2021-01-22] MEDS ORDERED: fentaNYL citrate 100 MCG/2 ML VIAL ONE (10:48)
[2021-01-22] MEDS ORDERED: MIDAZOLAM HCL 1 MG/ML 2ML VIAL ONE (10:48)
[2021-01-22] MEDS ORDERED: LIDOCAINE 2% 2 ML VIAL/AMP(20MG/ML) INFIL ONE (10:50)
--- NOTE | 2021-01-22 11:30 | Anesthesiology Consultation ---
Date of Service January 22, 2021 Assessment & Plan (1) Encounter for pre-operative examination: Chart Review Chart Review: Acceptable Risk for Surgery History Surgery Operation Date: 01/22/21 10:00 Proposed Procedures p Laparoscopic Cholecystectomy - Rhoda Collins MD Height/Weight Height: 5 ft 7.5 in Weight: 100.9 kg Allergies Allergy/AdvReac Type Severity Reaction Status Date / Time No Known Allergies Allergy Unknown Verified 01/21/21 20:39 Medications Home Medications Medication Instructions Recorded Confirmed Last Taken albuterol sulfate 90 mcg/actuation 1 inh INHALATION QID PRN #8.5 g 11/11/20 01/21/21 Unknown aerosol inhaler cetirizine 5 mg-pseudoephedrine ER 1 tab PO DAILY PRN tab 11/15/20 01/21/21 01/13/21 120 mg tablet,extended release,12hr (Zyrtec-D) cholecalciferol (vitamin D3) 50 50 mcg PO HS 11/15/20 01/21/21 01/18/21 mcg (2,000 unit) capsule calcipotriene 0.005 % topical cream 1 applic TOPICAL BID #120 g 12/13/20 01/21/21 01/18/21 clobetasol 0.05 % scalp solution 1 applic TOPICAL DAILY #50 ml 12/13/20 01/21/21 01/18/21 clobetasol 0.05 % topical cream 1 applic TOPICAL BID 14 Days #60 g 12/13/20 01/21/21 01/20/21 08:30 Curamin 3 cap PO QAM 01/17/21 01/21/21 01/18/21 omega-3 fatty acids 1,000 mg PO QPM 01/17/21 01/21/21 01/18/21 acetaminophen 500 mg tablet 1,500 mg PO Q6H PRN 01/21/21 01/21/21 01/21/21 (Tylenol Extra Strength) 1500 mg conjugated estrogens 0.625 mg/gram 0.625 mg VAGINAL PM 01/21/21 01/21/21 01/20/21 vaginal cream (Premarin) ibuprofen 200 mg capsule (Motrin 200 mg PO Q6H PRN 01/21/21 01/21/21 01/21/21 IB) 200 mg levothyroxine 100 mcg tablet 100 mcg PO DAILYBB 07/01/21/21 01/21/21 omeprazole 40 mg capsule,delayed 40 mg PO QAM 01/21/21 01/21/21 01/21/21 release Active Medications Generic Name Dose Route Start Last Admin Trade Name Sajan PRN Reason Stop Dose Admin Lactated Ringer's 1,000 mls @ 100 mls/hr 01/21/21 23:03 01/22/21 09:57 Lr IV 02/20/21 23:02 100 mls/hr .Q10H LOVE Administration Ampicillin Sodium/Sulbactam 104 mls @ 200 mls/hr 01/22/21 00:00 01/22/21 11:25 Sodium 1,500 mg/ Sodium IV 02/01/21 00:00 200 mls/hr Chloride Q6H LOVE Administration Protocol Levothyroxine Sodium 100 mcg 01/22/21 06:30 01/22/21 06:00 Levothyroxine Sodium 100 Mcg Tablet PO 02/21/21 06:29 Not Given DAILYBB LOVE Morphine Sulfate 2 mg 01/21/21 23:03 01/22/21 06:00 Morphine Sulfate 2 Mg/Ml Carp IV 02/04/21 23:02 2 mg Q3H PRN Administration Pain (1,2,3,4,5) & Pre PT Morphine Sulfate 4 mg 01/21/21 23:03 01/22/21 09:58 Morphine Sulfate 4 Mg/Ml 1 Ml Carp\\Vial IV 02/04/21 23:02 4 mg Q3H PRN Administration Pain (6,7,8,9,10) Ondansetron HCl 4 mg 01/21/21 23:03 01/22/21 09:58 Ondansetron Inj 2 Mg/Ml 2 Ml Vial IV 02/20/21 23:02 4 mg Q4H PRN Administration Nausea And Vomiting Pantoprazole Sodium 40 mg 01/22/21 09:00 01/22/21 07:51 Pantoprazole 40 Mg Tab PO 02/21/21 08:59 Not Given DAILY LOVE Past Medical History Medical History ADD (attention deficit disorder) Allergy-induced asthma LAST USED INHALER 3 WEEKS AGO Anxiety and depression Bipolar disorder "MILD" Brain concussion X 5 ([facility]>LAST EPISODE 5 YEARS AGO) Degenerative disc disease EDS (Jaya-Danlos syndrome) Endometriosis (~01/17/06) GERD (gastroesophageal reflux disease) H/O benign neoplasm of thyroid gland Hypothyroidism Lumbar radiculopathy Migraine Temporomandibular joint disorder WITH LOCKING Past Family History Family History Aunt Breast cancer maternal Mother Multiple allergies Hyperlipidemia Mental disorder Esophageal reflux Endometriosis Hypertension Thyroid disorder Unknown Skin cancer Ovarian cancer Breast cancer Uterine cancer Father Multiple allergies Skin cancer Grandmother (Paternal) Lung cancer Uncle Myocardial infarction Other Family history of blood clots No family history of adverse response to anesthesia Denies family history of Prostate cancer Diabetes Colorectal cancer Past Surgical History Surgical History H/O thyroidectomy LARGE MASS REMOVED (BENIGN) History of esophagogastroduodenoscopy (EGD) History of tooth extraction S/P laparoscopic procedure endometrioma fulguration AND OVARIAN CYSTECTOMY [place] teeth removed Social History Smoking Status: Never smoker Hx Alcohol Use: Yes alcohol intake frequency: holidays/special occasions only Hx Substance Use: No Physical Exam Vital Signs Last Vital Signs Temp 37 C 01/22/21 07:41 Pulse 69 01/22/21 07:41 Resp 16 01/22/21 07:41 BP 147/87 H 01/22/21 07:41 Pulse Ox 96 01/22/21 07:41 Testing Laboratory Results 01/21/21 16:21 01/21/21 16:21 Urine Color Yellow 01/21/21 16:25 Urine Appearance Cloudy (Clear) A 01/21/21 16:25 Urine pH 5.0 (4.5-7.5) 01/21/21 16:25 Ur Specific [place] 1.022 (1.000-1.030) 01/21/21 16:25 Urine Protein Negative (Negative) 01/21/21 16:25 Urine Glucose (UA) Negative (Negative) 01/21/21 16:25 Urine Ketones Negative (Negative) 01/21/21 16:25 Urine Nitrite Negative (Negative) 01/21/21 16:25 Ur Leukocyte Esterase Negative (Negative) 01/21/21 16:25 Urine WBC (Auto) 10-30 /hpf (0-5) H 01/21/21 16:25 Urine RBC (Auto) 0-4 /hpf (0-4) 01/21/21 16:25 U Hyaline Cast (Auto) 1-5 /lpf (0-5) 01/21/21 16:25 U Epithel Cells (Auto) >30 /lpf (0-5) H 01/21/21 16:25 Urine Bacteria (Auto) 1+ (Negative) H 01/21/21 16:25
[2021-01-22] MEDS ORDERED: fentaNYL citrate 100 MCG/2 ML VIAL IV PRN (12:10)
[2021-01-22] MEDS ORDERED: ONDANSETRON INJ 2 MG/ML 2 ML VIAL IV PRN (12:10)
[2021-01-22] MEDS ORDERED: ATROPINE SULFATE 0.1 MG/ML 10ML SYR IV PRN (12:10)
[2021-01-22] MEDS ORDERED: PROMETHAZINE HCL 12.5 MG in SODIUM CHLORIDE 0.9% 50 ML IV PRN (12:10)
[2021-01-22] MEDS ORDERED: KETOROLAC 30 MG/ML VIAL IV PRN (12:10)
[2021-01-22] MEDS ORDERED: LABETALOL HCL IV 5 MG/ML 20ML IV PRN (12:10)
[2021-01-22] MEDS ORDERED: HYDROmorphone INJ 2 MG/ML SYR/VIAL ONE (12:26)
[2021-01-22] MEDS ORDERED: KETAMINE 50 MG/5 ML SYRINGE ONE (12:27)
[2021-01-22] MEDS ORDERED: DEXAMETHASONE SOD INJ 4 MG/ML VIAL ONE (12:38)
[2021-01-22] MEDS ORDERED: GLYCOPYRROLATE 0.2 MG/ML VIAL ONE (13:28)
[2021-01-22] MEDS ORDERED: ONDANSETRON INJ 2 MG/ML 2 ML VIAL ONE (13:28)
[2021-01-22] MEDS ORDERED: NEOSTIGMINE METHYLSULFATE 1 MG/ML 10ML VIAL ONE (13:28)
--- NOTE | 2021-01-22 14:01 | Operative Report ---
Post Operative Report Pre & Post Diagnosis Operation Date: 01/22/21 10:00 Pre-Op Diagnosis: Acute Cholecysitis Post-Op Diagnosis: Acute calculous Cholecysitis I identified the patient and participated in the time-out.: Yes Procedure Operation Date: 01/22/21 10:00 Actual Procedures p Laparoscopic Cholecystectomy(Not Applicable) - Rhoda Collins MD Surgeon Rhoda Collins MD Property Valuer none Estimated Blood Loss 5 Findings See Below (edematous gallbladder with impacted large stone) Fluids 1000 cc Specimens gallbladder and contents Drains none Anesthesia Type General Complications none Disposition Accompanied Patient To Recovery: No Disposition: Recovery Room Indications 45 yr old woman with acute calculous cholecystitis developing one day after colonoscopy. Consented for lap cholecystectomy. Description of Procedure The patient was on unasyn preoperatively. After the induction of GET, her abdomen was prepped and draped sterilely. She was positioned in trendelenberg. A supraumbilical incision was made and a veress needle placed into the peritoneal cavity. This was tested with the saline drop test. Initial pressure was 5 mmHg and this was taken to 15 mmHg. A 5 mm trocar was placed with the camera through the trocar site. Three additional trocars were placed - an 11 mm in the epigastrium and 2 5 mm on the right side of the abdomen. The gallbladder was tense and could not be grasped. This was decompressed with a needle. She was positioned in reverse trendelenberg. The gallbladder was retracted over the edge of the liver. There was a large impacted gallstone making exposure of the triangle of [place] challenging. Ultimately, this tissue was all carefully dissected free and the cystic artery and duct identified. Critical views were seen on both sides. Both structures were doubly clipped on the remaining side and clipped on the gallbladder side and divided. The thick walled edematous gallbladder was dissected off of the liver wall. This was placed in an endobag and removed through the epigastric incision (needed to be extended a short distance on skin to allow for removal). Hemostasis was noted to be present. The gallbladder fossa was irrigated and suctioned clear. Trocars were removed. 0.5% marcaine (total 30cc) was used for local anesthesia. The epigastric fascia was closed with 0 vicryl sutures. The skin of all 4 incisions was closed with subcuticular 4-0 vicryl suture. steristrips and sterile dressings were applied. She was awakened and taken to recovery in stable condition. I attest to the content of the Intraoperative Record and any orders documented therein. Any exceptions are noted below.
[2021-01-22] MEDS: oxyCODONE/ACETAMINOPHEN 5mg/325mg TAB PO PRN (20:24)
[2021-01-23] MEDS: AMPICILLIN/SULBACTAM SOD 1,500 MG in 0.9 % SODIUM CHLORIDE 100 ML IV SCH ×2 (01:37→06:33)
[2021-01-23] MEDS: oxyCODONE/ACETAMINOPHEN 5mg/325mg TAB PO PRN ×3 (01:39→11:06)
[2021-01-23] MEDS: LEVOTHYROXINE SODIUM 100 MCG TABLET PO SCH (06:33)
[2021-01-23] MEDS: LACTATED RINGER'S 1,000 ML IV SCH (07:00)
[2021-01-23] MEDS: PANTOprazole 40 MG TAB PO SCH (09:09)
--- NOTE | 2021-01-23 09:22 | Surgery Progress Note ---
Date of Service January 23, 2021 Assessment & Plan (1) Acute cholecystitis: Plan: s/p lap cholecystectomy. Doing well. Discharge today. Admission and Anticipated Discharge Date Admission Date: January 21, 2021 Subjective Feels much better. Back pain/ abd pain is resolved. Sore but controlled with meds. No nausea Physical Exam Constitutional: WD/WN, vitals as above Eyes: PERRL, conjunctivae normal, anicteric sclerae ENMT: external ear and nose normal, oropharynx normal Neck: normal visual inspection and trachea midline Respiratory: normal respiratory effort, lungs clear to auscultation Cardiovascular: RRR, no murmur, no edema Gastrointestinal (Abdomen): Inspection/Auscultation: abdomen normal to inspection, normal bowel sounds and + abdominal surgical incision (clean and intact); abdomen not distended Percussion/Palpation: + abdomen tender (epigastric, right upper quadrant) and abdomen soft; no guarding Musculoskeletal: Head/Neck/Chest: normocephalic and head atraumatic Extremities: extremities normal to inspection Neurologic: CN's II-XI intact bilaterally and awake; no focal motor deficits Psychiatric: A+Ox3, euthymic affect Results & Data ([facility]) Vital Signs (Past 12 Hours) Vital Signs Temp Pulse Resp BP Pulse Ox 01/23/21 07:58 36.5 C 85 16 105/70 95 01/23/21 02:34 36.8 C 83 14 104/66 92 01/22/21 22:50 37.1 C 85 16 110/69 93
--- NOTE | 2021-01-23 09:23 | Discharge Summary ---
Date of Service January 23, 2021 Admission HPI Per Admitting Provider 45 yr old woman who underwent a colonoscopy yesterday for diarrhea. Afterwards, she ate onion rings, nachos, mashed potatoes and then developed severe upper abdominal pain. Located in epigastrium, right upper quadrant, squeezing, sharp, crampy, 8/10 in intensity, mild nausea but no vomiting. Radiated to her back. Somewhat better with pain meds but still feels "crappy". Can't get comfortable, no exacerbating factors. No family history of gallbladder disease. No fevers/ chills. Came to ER and was found to have acute calculous cholecystitis. No jaundice. Admission Exam (Per Admitting) Constitutional WD/WN, vitals as above Eyes PERRL, conjunctivae normal, anicteric sclerae ENMT external ear and nose normal, oropharynx normal Neck normal visual inspection and trachea midline Respiratory normal respiratory effort, lungs clear to auscultation Cardiovascular RRR, no murmur, no edema Gastrointestinal (Abdomen) Inspection/Auscultation: abdomen normal to inspection, normal bowel sounds and + abdominal surgical incision (clean and intact); abdomen not distended Percussion/Palpation: + abdomen tender (epigastric, right upper quadrant) and abdomen soft; no guarding Musculoskeletal Head/Neck/Chest: normocephalic and head atraumatic Extremities: extremities normal to inspection Neurologic CN's II-XI intact bilaterally and awake; no focal motor deficits Psychiatric A+Ox3, euthymic affect Discharge Data Consultations 01/21/21 20:30 ED Decision to Admit Stat Procedures Performed Operation Date: 01/22/21 10:00 Actual Procedures p Laparoscopic Cholecystectomy(Not Applicable) - Rhoda Collins MD Hospital Course (1) Acute cholecystitis: s/p lap cholecystectomy. Doing well. Discharge today.
--- NOTE | 2021-01-23 09:31 | Discharge Summary ---
Date of Service January 23, 2021 Admission HPI Per Admitting Provider 45 yr old woman who underwent a colonoscopy yesterday for diarrhea. Afterwards, she ate onion rings, nachos, mashed potatoes and then developed severe upper abdominal pain. Located in epigastrium, right upper quadrant, squeezing, sharp, crampy, 8/10 in intensity, mild nausea but no vomiting. Radiated to her back. Somewhat better with pain meds but still feels "crappy". Can't get comfortable, no exacerbating factors. No family history of gallbladder disease. No fevers/ chills. Came to ER and was found to have acute calculous cholecystitis. No jaundice. Admission Exam (Per Admitting) Constitutional WD/WN, vitals as above Eyes PERRL, conjunctivae normal, anicteric sclerae ENMT external ear and nose normal, oropharynx normal Respiratory normal respiratory effort, lungs clear to auscultation Cardiovascular RRR, no murmur, no edema Gastrointestinal (Abdomen) Inspection/Auscultation: normal bowel sounds; abdomen not distended Percussion/Palpation: + abdomen tender and abdomen soft Musculoskeletal no cyanosis or clubbing, extremities motor strength 5/5 Neurologic awake; no focal motor deficits Psychiatric A+Ox3, euthymic affect Discharge Data Consultations 01/21/21 20:30 ED Decision to Admit Stat Procedures Performed Operation Date: 01/22/21 10:00 Actual Procedures p Laparoscopic Cholecystectomy(Not Applicable) - Rhoda Collins MD Hospital Course (1) Acute cholecystitis: Did well following laparoscopic cholecystectomy. Tolerating diet. Pain controlled. Stable for discharge.
== END 2021-01-23 11:35 | disposition home or self-care (01) ==
LOC: ED 15:41 → 3N 15:41